=== PATIENT | male | born 1945 | race Caucasian/White ===

== ENCOUNTER 2023-07-14 17:57 | Emergency (ER) | payer MEDICARE ==
[2023-07-14 19:05] LABS: BASOPHILS ABSOLUTE AUTO 0.1 K/mm3 (0.0-0.2); BASOPHILS PERCENT AUTO 0.6 % (0.0-1.0); EOSINOPHILS ABSOLUTE AUTO 0.1 K/mm3 (0.0-0.4); EOSINOPHILS PERCENT AUTO 1.4 % (0.0-6.0); HEMATOCRIT 38.1 % (42.0-52.0); HEMOGLOBIN 11.6 gm/dl (14.0-18.0); IMMATURE GRAN ABSOLUTE AUTO 0.11 K/mm3 (0.00-0.05); IMMATURE GRAN PERCENT AUTO 1.4 % (0.0-0.4); LYMPHOCYTES ABSOLUTE AUTO 1.2 K/mm3 (1.0-4.8); MEAN CORPUSCULAR HEMOGLOBIN 26.4 pg (28.0-32.0); MEAN CORPUSCULAR HGB CONC 30.4 g/dl (32.0-36.0); MEAN CORPUSCULAR VOLUME 86.6 fl (83.0-99.0); MEAN PLATELET VOLUME 9.6 fl (9.4-12.4); MONOCYTES ABSOLUTE AUTO 0.7 K/mm3 (0.0-0.8); MONOCYTES PERCENT AUTO 8.8 % (0.0-8.0); NEUTROPHILS ABSOLUTE AUTO 5.8 K/mm3 (1.8-7.7); NEUTROPHILS PERCENT AUTO 72.8 % (41.0-71.0); PLATELET COUNT,PLT 280 K/mm3 (150-400); WHITE BLOOD CELL COUNT,WBC 7.92 K/mm3 (3.9-11.3)
[2023-07-14 19:33] LABS: A/G RATIO 0.4 (1-2); ALANINE AMINOTRANSFERASE,ALT 40 U/L (16-63); ALBUMIN 2.5 g/dl (3.4-5.0); ALKALINE PHOSPHATASE 205 U/L (46-116); ANION GAP 7.5 (5-15); ASPARTATE AMNIOTRANSFERASE,AST 65 U/L (15-37); BILIRUBIN TOTAL 0.4 mg/dL (0.2-1.0); BLOOD UREA NITROGEN,BUN 12 mg/dL (7-18); CALCIUM 9.8 mg/dL (8.5-10.1); CHLORIDE,CL 96 mEq/L (98-107); CREATININE 0.8 mg/dL (0.7-1.3); ESTIMATED GFR 90 mL/min (>60); GLUCOSE RANDOM 114 mg/dL (70-99); POTASSIUM,K 4.5 mEq/L (3.5-5.1); PROTEIN TOTAL,TP 8.3 g/dl (6.4-8.2); SODIUM,NA 139 mEq/L (136-145)
[2023-07-14 19:35] LABS: CARBON DIOXIDE,CO2 40 mEq/L (21-32)
[2023-07-14] MEDS: Iopamidol 612 MG/ML 100 ML Bottle IVPUSH ONE (19:57)
[2023-07-14] MEDS: Sodium Chloride 0.9% 10 ML Syringe FLUSH PRN (19:57)
[2023-07-14] MEDS: Iopamidol 612 MG/ML 30 ML SDV IVPUSH ONE (19:57)
[2023-07-14] MEDS: HYDROmorphone 0.5 MG/0.5 ML Syringe IVPUSH ONE (20:16)
[2023-07-14] MEDS: Sodium Chloride 0.9% 500 ML IV ONE (20:17)
[2023-07-14] MEDS: Magnesium Citrate Solution 296 ML Bottle PO ONE (21:41)
[2023-07-14 22:18] VITALS: BP 135/88; PULSE 90
== END 2023-07-14 22:19 | disposition home or self-care (01) ==
LOC: JD.ED 17:57
DX: C61 Malignant neoplasm of prostate (principal); C79.51 Secondary malignant neoplasm of bone; M54.50 Low back pain, unspecified; G89.29 Other chronic pain; K59.09 Other constipation; J44.89 Other specified chronic obstructive pulmonary disease; Z88.0 Allergy status to penicillin; Z79.899 Other long term (current) drug therapy; Z86.19 Personal history of other infectious and parasitic diseases
CPT/HCPCS: 36415; 71260; 74177; 80053; 83735; 84484; 85025; 93005; 96374; 99285; A9270; G0103; J1170; J3490; J7030; Q9967